=== PATIENT | male | born 1990 | race Caucasian/White ===

== ENCOUNTER 2018-11-20 16:18 | Emergency (ER) | payer OTHER ==
--- NOTE | 2018-11-20 16:36 | EDPHY ---
General - History Smoking Status: Former smoker Time Seen by Provider: 11/20/18 16:27 Narrative: CLINICAL IMPRESSION: Left 5th metacarpal pain ASSESSMENT/PLAN: 28-year-old male left-hand dominant presents to the emergency department with left 5th metacarpal pain after slapping a wall 2 weeks ago. Neurovascular exam intact. No carpal bone or forearm pain. No open wound or deformity. X-rays ordered. Patient signed out to HORTENCIA Mendoza at [id number] pending x-ray results and further treatment and evaluation. DIFFERENTIAL DX: Differential includes but not limited to acute fracture, strain/sprain, joint dislocation, soft tissue contusion ED PROCEDURES: ED COURSE: Patient seen assessed by myself at 4:30 a.m.. Plan for x-rays of the left hand. CHIEF COMPLAINT: Left hand pain HPI: 28-year-old male presents to the emergency department after he "slacked" a wall 2 weeks ago with his left hand and has had persistent pain over the left 5th metatarsal. He is left-hand dominant. No open wound or obvious deformity. No loss of sensation to fingers. No wrist or forearm pain. No prior injury or surgery to this hand. PAST MEDICAL HISTORY: None reported Pertinent Past Surgical History: None reported Social History: Otherwise healthy, smokes marijuana REVIEW OF SYSTEMS: All other systems negative Constitutional: No fever, no chills Musculoskeletal: No deformity, + joint pain Skin: No rashes, color change or open wounds. Neurological: No sensory loss or weakness. PHYSICAL EXAM: General Appearance: Alert, oriented, appropriate for age, cooperative, NAD, well hydrated, non-toxic appearing, VSS, no hypoxia. Neurological: Alert and oriented x 3, normal sensation and strength of extremities Skin: Warm, dry, no rashes, no nodules on palpation. Musculoskeletal: Reproducible pain to palpation along the left 5th metacarpal. No carpal bone pain. No deformity. Distal neurovascular exam intact. MEDICAL DECISION MAKING: Patient was seen independently. Secondary supervising physician at time of evaluation was Dr. Osorio. Diagnosis: Left hand pain . New, requires workup Summary: See assessment and plan for summary of ED visit Discussed patient with another provider: Bridger Mendoza Patient Progress: stable at time of signout . (Bunny Urbina) Medical Decision Makin:34 p.m.: I evaluated the patient. He is Neurovascularly intact. Cortical irregularity noted at the base of the 5th metacarpal on x-ray interpreted by staff radiologist images reviewed myself.. This is the location of patient's pain. This is his dominant hand. I recommended immobilization. He declined immobilization. I have warned him of the risks of declining this including but not limited to permanent chronic disability, non immobilization of fracture. He verbalized understanding and acceptance of of these risks and warnings.. I believe him to have decision-making capacity. Recommend follow up with Hand surgery Dr. Paulie Wang. (Jj Mendoza) - Diagnostics Imaging Results: Imaging Impressions Hand X-Ray 11/20/18 16:28 Impression: Mild cortical irregularity at the base of the fifth distal phalanx, likely projectional. Recommend correlation with point tenderness. Otherwise, no acute osseous abnormality. - Objective Vital Signs: Initial Vital Signs Temperature (C) 36.6 C 11/20/18 16:22 Heart Rate 93 11/20/18 16:22 Respiratory Rate 16 11/20/18 16:22 Blood Pressure 136/79 H 11/20/18 16:22 O2 Sat (%) 96 11/20/18 16:22 O2 Delivery Mode Room Air Allergies/Adverse Reactions: No Known Allergies Allergy (Unverified 11/20/18 16:22) Home Medications: Medication Instructions Recorded NK [No Known Home Meds] 11/20/18 Departure - Departure Disposition: Home, Routine, Self-Care Clinical Impression: Left hand pain Condition: Good Instructions: Hand Sprain (ED), Arthralgia (ED) Additional Instructions: Return to the ER immediately if you experience discoloration, have worsening pain, numbness, tingling, or any other symptoms that concern you. If you received x-rays in the emergency department today, be advised, that ligamentous , tendon, muscular, and other non-bony injury cannot be fully ruled out. Try to keep your affected extremity elevated above the level of your chest, and keep cold packs on the affected area, for the next 48 hours. You have declined immobilization of your hand. Referrals: Paulie Wang MD [Medical Doctor] - As per Instructions
--- NOTE | 2018-11-20 17:48 | ASMTCAGE ---
CAGE Do you feel you ought to Answers: No cut down on your drinking or drug use? Do people annoy you by Answers: No criticizing your drinking or drug use? Do you feel guilty about Answers: No your drinking or drug use? Do you drink or use drugs Answers: No first thing in the morning ([employer] [facility])? Date Signed: 11/20/2018 05:48 PM Electronically Signed By:Dianna Samuel RN
[2018-11-20 18:43] VITALS: BP 128/89
== END 2018-11-20 18:46 | disposition home or self-care (01) ==
DX: S63.617A Unspecified sprain of left little finger, initial encounter (principal); M79.642 Pain in left hand; W22.8XXA Striking against or struck by other objects, initial encounter